=== PATIENT | male | born 1965 | race Caucasian/White ===

== ENCOUNTER 2018-07-22 14:40 | Outpatient (CLI) | payer OTHER ==
[2018-07-22] MEDS ORDERED: IOVERSOL 320 100 ML VIAL IVP ONE ×2 (14:57→16:29)
[2018-07-22 15:32] LABS: CREATININE 1.1 mg/dL (0.6-1.2)
--- NOTE | 2018-07-23 11:42 | CT Report ---
Reason: ASCENDING AORTAIC ANEURYSM Procedure Date: 07/22/2018 Accession Number: [id number] / [id number] Procedure: CT - Chest Angio (AORTA) CPT Code: FULL RESULT: EXAM: CT ANGIOGRAM CHEST EXAM DATE: 07/22/2018 03:40 PM. CLINICAL HISTORY: Thoracic aortic aneurysm without rupture. COMPARISONS: CHEST W/O 12/23/2013 2:57 PM. TECHNIQUE: Routine axial helical CT angiographic imaging was performed through the chest. IV Contrast: 80 mL Optiray 320. Reconstructions: Coronal, sagittal, and 3D MIP reconstructions of the aorta. In accordance with CT protocol optimization, one or more of the following dose reduction techniques were utilized for this exam: automated exposure control, adjustment of mA and/or KV based on patient size, or use of iterative reconstructive technique. FINDINGS: Vascular Structures: The thoracic aorta is upper limits normal in caliber with sinus of Valsalva measuring up to 4.2 cm and the ascending aorta measuring up to 3.9 cm. No acute aortic pathology or significant atherosclerotic disease is demonstrated. Variant bovine arch anatomy is seen. The aortic arch branch vessels appear relatively patent. Conventional coronary artery anatomy is seen with minor scattered calcified atherosclerotic disease seen primarily in the right coronary artery. Lungs/Pleura: There are several scattered pulmonary nodules distributed in a perilymphatic fashion similar to the prior study with appearance characteristic for sarcoidosis. There is some more confluent small consolidation and nodularity seen in the posterior right middle lobe. No dominant mass is seen. No effusion is demonstrated. Mediastinum: Heart size is normal with no pericardial effusion. Moderate diffuse partly calcified lymphadenopathy is again seen throughout the hilum and mediastinum similar to prior study with appearance characteristic for sarcoidosis. Abdominal Organs: Visualized upper abdominal organs are notable for cholecystectomy changes. Bones: Minor compression deformity at T9 is stable. No acute osseous abnormality is demonstrated. Other: None. IMPRESSION: 1. Minimal prominence of the aortic root and ascending thoracic aorta measuring up to 3.9 cm. No acute aortic pathology is demonstrated. 2. Stable calcified mediastinal adenopathy and a slightly increasing perilymphatic nodular changes in the lung characteristic for sarcoidosis. 3. Stable chronic minor T9 compression fracture. 4. Minor calcified coronary artery disease. RADIA
== END 2018-07-22 14:41 | disposition home or self-care (01) ==
LOC: DI 14:40
PROVIDERS: ATTEND Physician Assistant Medical
DX: I77.810 Thoracic aortic ectasia (principal); R59.0 Localized enlarged lymph nodes; I25.10 Atherosclerotic heart disease of native coronary artery without angina pectoris; M48.54XA Collapsed vertebra, not elsewhere classified, thoracic region, initial encounter for fracture
CPT/HCPCS: 36415; 71275; 82565; Q9967

== ENCOUNTER 2018-08-04 07:11 | Outpatient (CLI) | payer OTHER ==
--- NOTE | 2018-08-04 10:06 | Ultrasound Report ---
Reason: ELEVATED LFT'S,ALCOHOL ABUSE Procedure Date: 08/04/2018 Accession Number: [id number] / [id number] Procedure: US - Abdomen Limited CPT Code: FULL RESULT: EXAM: ABDOMEN ULTRASOUND LIMITED, RUQ EXAM DATE: 08/04/2018 08:20 AM. CLINICAL HISTORY: Elevated LFTS, alcohol abuse. COMPARISON: None. TECHNIQUE: Real-time scanning was performed with static images obtained. FINDINGS: Liver: Liver echotexture is heterogeneous with increased echogenicity in keeping with parenchymal disease such as steatosis. The right lobe of the liver measures at least 19.3 cm, subjectively mildly enlarged by ultrasound. Main portal vein flow: Hepatopetal. Gallbladder: Surgically absent. Biliary System: CBD measures 8 mm. No intrahepatic or extrahepatic ductal dilatation. Other: The visualized portions of the hepatic IVC demonstrate eccentric echogenic intravascular thrombus occupying less than 25% of the vessel lumen. IMPRESSION: Hepatic steatosis. 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 CRITICAL RESULT: The findings were discussed with Dr. Lalwer on 08/04/2018 at 8:30 AM. GIANFRANCO
== END 2018-08-04 07:12 | disposition home or self-care (01) ==
LOC: DI 07:11
PROVIDERS: ATTEND Physician Assistant Medical
DX: K76.0 Fatty (change of) liver, not elsewhere classified (principal); R79.89 Other specified abnormal findings of blood chemistry; F10.10 Alcohol abuse, uncomplicated
CPT/HCPCS: 76705

== ENCOUNTER 2018-08-21 11:33 | Outpatient (CLI) | payer OTHER ==
[2018-08-22 13:20] LABS: HEPATITIS B SURFACE ANTIGEN NON-REACTIVE (NON-REACTIVE)
[2018-08-22 13:22] LABS: HEPATITIS A IGM NON-REACTIVE (NON-REACTIVE); HEPATITIS B CORE ANTIBODY IGM NON-REACTIVE (NON-REACTIVE); HEPATITIS B SURFACE ANTIGEN NON-REACTIVE (NON-REACTIVE); HEPATITIS C ANTIBODY NON-REACTIVE (NON-REACTIVE)
[2018-08-23 14:57] LABS: ANA SCREEN NEGATIVE (NEGATIVE)
[2018-08-26 16:00] LABS: B2 GLYCOPROTEIN I IGA AB <9 SAU (< OR = 20); B2 GLYCOPROTEIN I IGG AB <9 SGU (< OR = 20); B2 GLYCOPROTEIN I IGM AB <9 SMU (< OR = 20); CARDIOLIPIN AB IGA <11 APL
== END 2018-08-21 11:34 | disposition home or self-care (01) ==
LOC: LAB 11:33
PROVIDERS: ATTEND Internal Medicine Gastroenterology
DX: R94.5 Abnormal results of liver function studies (principal)
CPT/HCPCS: 36415; 80074; 81599; 82728; 83516; 85300; 85303; 85306; 85613; 85730; 86038; 86146; 86147; 87340

== ENCOUNTER 2018-09-12 09:27 | Outpatient (CLI) | payer OTHER ==
[2018-09-12] MEDS ORDERED: IOVERSOL 320 100 ML VIAL IVP ONE ×2 (09:43→11:19)
[2018-09-12] MEDS ORDERED: IOVERSOL 320 50 ML VIAL ONE (09:43)
[2018-09-12 09:53] LABS: CREATININE 0.9 mg/dL (0.6-1.2)
[2018-09-12] MEDS ORDERED: IOVERSOL 320 50 ML VIAL PO ONE (11:19)
--- NOTE | 2018-09-15 06:46 | CT Report ---
Reason: HEPATIC VEIN THROMBOSIS Procedure Date: 09/12/2018 Accession Number: [id number] / [id number] Procedure: CT - Abdomen W/ CPT Code: FULL RESULT: EXAM: CT ABDOMEN EXAM DATE: 09/12/2018 10:58 AM. 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 COMPARISON: ABDOMEN LIMITED 08/04/2018 7:26 AM CHEST ANGIO (AORTA) 07/22/2018 3:40 PM. TECHNIQUE: Routine helical CT imaging was performed through the abdomen. IV contrast: opti 320 100ml Enteric contrast: Yes. Reconstruction: Coronal and sagittal. In accordance with CT protocol optimization, one or more of the following dose reduction techniques were utilized for this exam: automated exposure control, adjustment of mA and/or KV based on patient size, or use of iterative reconstructive technique. FINDINGS: Lung Bases: There are calcified mediastinal and hilar lymph nodes. There are small pulmonary nodules. Similar appearance compared to prior chest CT. Liver: Diffusely decreased attenuation of the liver consistent with steatosis. Gallbladder/Bile Ducts: Surgically absent gallbladder. No abnormal bile duct dilation. Spleen: Normal. Pancreas: Normal. Adrenal Glands: Normal. Kidneys: Normal. No masses or hydronephrosis. Peritoneal Cavity/Bowel: Normal. No free fluid, free air or adenopathy. No masses or acute inflammatory process. Vasculature: No aneurysms or other significant abnormality. Mild atherosclerotic calcification in the aorta and iliac arteries. Specifically, no intrahepatic IVC thrombosis is evident. Bones: No significant abnormality. Other: There are a few small retroperitoneal and periportal lymph nodes, nonspecific. IMPRESSION: 1. Intrahepatic IVC thrombosis is not evident on this exam. 2. No acute abnormality. 3. Hepatic steatosis. RADIA
== END 2018-09-12 09:28 | disposition home or self-care (01) ==
LOC: DI 09:27
PROVIDERS: ATTEND Internal Medicine Gastroenterology
DX: K76.0 Fatty (change of) liver, not elsewhere classified (principal); I82.0 Budd-Chiari syndrome
CPT/HCPCS: 36415; 74160; 82565; Q9967

== ENCOUNTER 2020-08-15 08:03 | Outpatient (CLI) | payer OTHER ==
[2020-08-15] MEDS ORDERED: IOVERSOL 320 100 ML VIAL IVP ONE ×2 (08:40→10:21)
--- NOTE | 2020-08-15 11:10 | CT Report ---
PROCEDURE: ANGIO ABDOMEN/PELVIS W INDICATIONS: ASCENDING AORTA DILITATION, PULMONARY SACOIDOSIS CONTRAST: IV CONTRAST: Optiray 320 ml: 100 PO CONTRAST: *NO PO CONTRAST TECHNIQUE: After the administration of intravenous contrast, 2 and 5 mm sections acquired from the diaphragm to the iliac crests. 3-dimensional maximum intensity projection (MIP) coronal and sagittal reformats, a nd/or 3-dimensional volume rendering reformatting was then performed. For radiation dose reduction, the following was used: automated exposure control, adjustment of mA and/or kV according to patient size. COMPARISON: CT abdomen with contrast dated 09/12/2018 FINDINGS: Image quality: Excellent. Extravascular tissues: Lung bases are clear. Bilateral hilar adenopathy and calcified hilar and infr ahilar and posterior mediastinal lymph nodes are consistent with the patient's known diagnosis of pul monary sarcoidosis. Heart size is normal. Liver and spleen are normal in size and enhancement. Gall bladder is surgically absent. Biliary system is non dilated. Pancreas enhances normally. No adrena l nodules. Kidneys are normal in size and enhancement, without hydronephrosis. Non-opacified bowel loops demonstrate normal wall thickness and caliber. No free fluid or air. Mild diverticulosis. No retroperitoneal or mesenteric adenopathy. No ventral hernias. Bilateral fat-containing inguinal her nias. No inguinal adenopathy. No suspicious bony abnormalities. No acute vertebral body compression fractures. Chronic mild to moderate T9 compression. Abdominal aorta: Normal caliber without aneurysm or significant plaque or stenosis. Mesenteric arteries: SMA, celiac, and JEANNINE are widely patent. Renal arteries: Widely patent bilateral single main renal arteries. IMPRESSION: 1. Unremarkable abdominal aorta. No aneurysm. 2. Known pulmonary sarcoidosis. Please refer to a separate report for chest CTA findings. 3. Bilateral fat-containing inguinal hernias. 4. Mild diverticulosis. 5. Remote cholecystectomy. Reviewed by: Jerald Farah MD on 08/15/2020 11:09 AM [facility] Approved by: Jerald Farah MD on 08/15/2020 11:09 AM PST Station ID: [id number]
--- NOTE | 2020-08-15 16:54 | CT Report ---
PROCEDURE: ANGIO CHEST W/WO INDICATIONS: ASCENDING AORTA DILITATION, PULMONARY SACOIDOSIS CONTRAST: IV CONTRAST: Optiray 320 ml: 100 PO CONTRAST: *NO PO CONTRAST TECHNIQUE: After the administration of intravenous contrast, 2 mm thick sections acquired from the pulmonary api harper to the posterior costophrenic angles. 3-dimensional maximum intensity projection (MIP) coronal a nd sagittal reformats were then acquired through the thorax. For radiation dose reduction, the follow ing was used: automated exposure control, adjustment of mA and/or kV according to patient size. COMPARISON: Prior 12/23/2013 and 07/22/[address] scanning reviewed. Also, 09/12/2018 CT of the abdo men that includes a portion of the lung bases is reviewed. FINDINGS: Image quality: Excellent. Pulmonary arteries: Pulmonary arteries are normal in size, and demonstrate no intraluminal filling d efects to suggest central pulmonary embolism. Lungs and pleura: Lungs are again seen to be abnormal, with a combination of areas of chronic appear ing alveolar consolidation in the perihilar regions, right greater than left, and also scattered with in the mid and lower lungs bilaterally. No areas of pulmonary fibrosis are found. The pattern has pro gressed from the earlier chest CT scanning from December 2013 when a lesser degree of these abnormalities was present. No pleural effusions or pneumothorax. Central and peripheral airways are patent. Mediastinum: Heart size is normal, without pericardial effusion. There is a pattern of mild to moder ate mediastinal and hilar adenopathy, comprised of both mildly enlarged lymph nodes, and an increased number of these lymph nodes, and also calcified smaller lymph nodes within the mediastinum and each hilum, bilaterally. Thoracic aorta is normal in caliber at 3.7-3.9 cm at the ascending aorta and enh ancement. Esophagus is normal in caliber, without hiatal hernia. Bones and chest wall: No suspicious bony lesions. Ribs and thoracic spine appear intact throughout. The thyroid is normal where well seen. No axillary or supraclavicular adenopathy. Abdomen: Visualized upper abdominal solid organs appear normal in the early arterial phase of enhanc ement. Apparent prior cholecystectomy. IMPRESSION: The air space disease pattern and mediastinal/hilar adenopathy has progressed slowly from the compari son examination in December 2013 to the current examination. As noted, there is a pattern of mediastinal a nd hilar adenopathy that includes both mildly enlarged nodes and scattered partially calcified nodes. The appearance could represent a manifestation of chronic active granulomatous disease but is also c onsistent with sarcoidosis. No pulmonary fibrosis is found. The ascending aorta is clinically reported to be dilated, but the current maximal dimension of the as cending aorta is within normal limits, measured at 3.7-3.9 cm in maximal diameter. Reviewed by: Kyle Villa MD on 08/15/2020 4:53 PM PST Approved by: Kyle Villa MD on 08/15/2020 4:53 PM PST Station ID: [id number]
== END 2020-08-15 08:04 | disposition home or self-care (01) ==
LOC: DI 08:03
PROVIDERS: ATTEND Nurse Practitioner
DX: K40.20 Bilateral inguinal hernia, without obstruction or gangrene, not specified as recurrent (principal); K57.90 Diverticulosis of intestine, part unspecified, without perforation or abscess without bleeding; D86.0 Sarcoidosis of lung; R59.0 Localized enlarged lymph nodes; I10 Essential (primary) hypertension; R73.9 Hyperglycemia, unspecified
CPT/HCPCS: 71275; 74174; Q9967

== ENCOUNTER 2020-08-15 08:17 | Outpatient (CLI) | payer OTHER ==
[2020-08-15 08:46] LABS: ALBUMIN 4.6 g/dL (3.2-5.5); ALBUMIN/GLOBULIN RATIO 1.5 (1.0-2.2); BILIRUBIN,TOTAL 1.2 mg/dL (0.2-1.0); CALCIUM 9.2 mg/dL (8.5-10.3); CREATININE 0.9 mg/dL (0.6-1.2); TOTAL PROTEIN 7.6 g/dL (6.7-8.2)
== END 2020-08-15 08:18 | disposition home or self-care (01) ==
LOC: LAB 08:17
PROVIDERS: ATTEND Nurse Practitioner
DX: I10 Essential (primary) hypertension (principal); R73.9 Hyperglycemia, unspecified
CPT/HCPCS: 36415; 80053

== ENCOUNTER 2021-02-23 14:36 | Outpatient (CLI) | payer OTHER ==
[2021-02-23 15:20] VITALS: BP 134/80
--- NOTE | 2021-02-23 15:20 | SLEEP CARE CONSULTATION ---
Information from patient questionnaire entered by Shirley Jaramillo. I have reviewed and concur with the information entered by Shirley Jaramillo. This document represents the service I personally performed and the decisions made by me, Joanie Quinteros ARNP. History of Present Illness Service Date and Time: 02/23/2021 1436 Reason for Visit: New patient, Previously diagnosed sleep apnea (very severe - AHI - 72.7), sleep apnea on CPAP therapy ([employer]), Re-establish care (last seen 2015) Chief Complaint: reports: Other (check up, using CPAP since about 2011) Date of Onset: mid 1999 Usual bedtime: 9 pm Time it takes to fall asleep: 30 minutes - use ambien Snores at night: Yes Observed to quit breathing while asleep: Yes Sleeps alone due to snoring: No Number of times waking at night: 0 Toss, Turn, or Twitch while sleeping: No Recalls having dreams: Yes (sometimes) Usually gets out of bed at: 6 am Feels refreshed in the morning: Yes Morning headache: No Sleepy or fatigued during the day: Yes Ever fallen asleep while driving: No Takes day naps: Yes Dreams during day naps: No Prior sleep studies: Yes Year and Where: [address] [facility] Sleep Type of Sleep Study: Polysomnography Additional HPI information: MALCOLM AGUERO was previously diagnosed to have very severe, AHI 72.7, obstructive sleep apnea-hypopnea syndrome and comes in today to re-establish care for CPAP therapy. - Parasomnia Symptoms Ever been unable to move upon waking from sleep: No Walks in sleep: No Talks in sleep: No Ever acted out dreams in sleep: No Ever felt weak in the knees when startled or emotional: No Bothered by creepy, crawly, restless sensations in legs: No Problems with memory or concentration: No CPAP Compliance Data - Data Reviewed with Patient Average duration of nightly device use: 9 hr 42 min Compliance rate %: 100 (180 days) Current pressure setting (cmH2O): 11 Humidity settin Heated hose settin Average residual AHI: 1.3 Average large leak: 12 min 53 sec Compliance data discussion: He has been buying his supplies online. He was using [employer] in town in the past. He is using a nasal cushion Dreamwear mask. He last changed the cushion last week. Subjective Patient concerns: denies: aerophagia, mask discomfort, air blowing in eyes, mask leak noise, condensation in mask/hose, nasal congestion, dry mouth, nose, throat, epistaxis, other Observed to snore while using device: No Current pressure setting perceived as: comfortable On therapy, patient: reports: sleeping better, awakening more refreshed, being more awake and alert during the day, more rested overall. 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 Patient is and lives in [place]. Have you smoked in the past 12 months: No Alcohol use: No Alcohol amount and frequency: no as of 06/2018 Caffeine use: Yes Caffeine amount and frequency: 3 cups a day in the morning Family History Family history of sleep disordered breathing: Yes Family Hx Sleep Apnea: Father: Snoring, Sleep apnea - Treated, Sibling: Snoring, Sleep apnea - Treated Allergies and Home Medications Drug allergies reviewed: Yes (NKDA) Home medication list reviewed: Yes Allergy and home medication list: Allopurinal Amlodipine Besylate Metformin Lansoprazole Metoprolol Er Succinate Escitalopram Atorvastatin Zolpidem, as needed Aspirin Multivitamin/Multimineral Fiber Well Gummies Glucosamine/Chondroitin Krill oil Aller-Sumi Colchicine, prn Ibuprofen Review of Systems Weight loss over past 5 years: 20 Cardiovascular: reports: high blood pressure Gastrointestinal: denies: heartburn Neurological: denies: headaches Psychiatric: denies: anxiety, depression Ear/Nose/Throat: reports: wisdom teeth removed. denies: tonsillectomy Immunologic: denies: allergies to food or environment Physical Exam Blood Pressure: 134/80 Cuff size: wrist Heart Rate: 65 O2 Saturation: 98 Height: 5 ft 10 in Weight: 224 lb Body Mass Index: 32.1 BMI Classification: Obese Impression and Plan 1. Obstructive Sleep Apnea-Hypopnea Syndrome, very severe, with excellent treatment compliance and good apnea control. On CPAP therapy, the patient has better sleep quality and is more rested overall. Patient is overall satisfied with his CPAP treatment and states he has difficulty sleeping without it. He found out that his DreamStation is on the Create recall and came in to see if he could replace his device. His device is due for an upgrade in May 2021. The patients CPAP is about 5 years old and of reasonable use and on the recall. Thus, we will try to update his machine. A DWO prescription will be made. Compliance guidelines for new device and follow up discussed. Patient states he has noticed any particulates in his device. I encouraged him to obtain an inline filter if he is going to continue to use this device. He voiced understanding. Patient's apnea severity and rationale for treatment to reduce apnea, improve sleep quality and reduce cardiovascular and cerebrovascular events was reviewed. I also reviewed the benefit of consistent device use of CPAP for hypertension, arrhythmia, diabetes, and gastric reflux. * Continue auto CPAP pressure at 11 cmH2O * Update Machine and supplies * Notify me if snoring with mask or feeling that the pressure is too much or too little * Attempt to lose weight * Call this office if any problems using CPAP * Return for follow up one month after obtaining new device, or sooner if con cerns arise Counseling Topics: Spare mask, Weight loss health impact Visit Type: In Office Time Spent with Patient (minutes): 30 Provider Statement: I spent 100% of the Face to Face Visit with the patient with greater than 50% spent counseling the patient and coordination of care.
== END 2021-02-23 14:37 | disposition home or self-care (01) ==
LOC: SC 14:36
PROVIDERS: ATTEND Nurse Practitioner Family
DX: G47.33 Obstructive sleep apnea (adult) (pediatric) (principal); E66.9 Obesity, unspecified; Z68.32 Body mass index [BMI] 32.0-32.9, adult
CPT/HCPCS: 99203; 99212

== ENCOUNTER 2022-07-11 08:52 | Outpatient (CLI) | payer OTHER ==
--- NOTE | 2022-07-11 09:31 | SLEEP CARE CONSULTATION ---
Information from patient questionnaire entered by Halie Rashid. I have reviewed and concur with the information entered by Halie Rashid. This document represents the service I personally performed and the decisions made by , Joanie Quinteros ARNP. History of Present Illness Service Date and Time: 07/11/2022 0852 Previous diagnosis: Very Severe, Obstructive Sleep Apnea-Hypopnea Syndrome AHI: 72.7 (in 2010) Reason for follow up: annual (LAST SEEN 02/2021) Equipment type: CPAP Equipment obtained from: Other (getting from [facility]) Mask style: Nasal Mask brand: Respironics (Dreamwear) Backup mask available: No (will keep old mask when replaced) Last cushion change: 2 weeks [facility] Type of Sleep Study: Polysomnography HPI additional information: MALCOLM AGUERO was diagnosed to have very severe, AHI 72.7, obstructive sleep apnea-hypopnea syndrome and returned today for CPAP therapy annual follow-up. Sleep Study - Results Type of Sleep Study: Polysomnography [facility]: Yes [facility] Compliance Data - Data Reviewed with Patient Average duration of nightly device use: 9 HRS 28 MIN 48SEC Compliance rate %: 98.9 (12/28/21-06/25/22; 180/180 days used) Current pressure setting (cmH2O): 11 Average residual AHI: 1.3 Central apnea: 0.1 Obstructive apnea: 0.8 Subjective Missed days of use due to: reports: other (power outage) Patient concerns: reports: nasal congestion (due to allergies). denies: aerophagia, mask discomfort, air blowing in eyes, mask leak noise, condensation in mask/hose, dry mouth, nose, throat, epistaxis Observed to snore while using device: No Current pressure setting perceived as: comfortable On therapy, patient: reports: sleeping better, awakening more refreshed, being more awake and alert during the day, more rested overall. denies: drowsiness while driving Initial [place] Sleepiness Scale score: 6 (07/11/22) Current [place] Sleepiness Scale score: 6 Allergies and Home Medications Drug allergies reviewed: Yes (NKDA) Home medication list reviewed: Yes (Metoprolol reduced to 25 mg) Review of Systems Review of systems same as previous: No (Cardiac Sarcoidosis) Physical Exam Vital signs obtained and entered by: HALIE Rice MA Blood Pressure: 126/78 (LEFT ARM) Cuff size: regular Heart Rate: 66 O2 Saturation: 96 Height: 5 ft 10 in Weight: 231 lb Body Mass Index: 33.1 BMI Classification: Obese Impression and Plan 1. Obstructive Sleep Apnea-Hypopnea Syndrome, very severe, with good treatment compliance and good apnea control. On CPAP therapy, the patient has better sleep quality and is more rested overall. Patient has been buying his supplies online and he needs a DME supplier. I will have my hris coordinator inform of DME options. A DWO prescription will then be made. Patient advised to contact this office if further supply problems. Patient has significant improvement of their sleep apnea and are satisfied with current CPAP therapy. Patient denies problems with oral dryness, nasal congestion, epistaxis, skin irritation or aerophagia. Patient's apnea severity and rationale for treatment to reduce apnea, improve sleep quality and reduce cardiovascular and cerebrovascular events was reviewed. I also reviewed the benefit of consistent device use of CPAP for hypertension, arrhythmia, diabetes and gastric reflux. 2. Obesity, unspecified. Currently patients BMI is 33.1. Obesity increases the risk of apnea, CPAP pressure requirements and overall health risks especially cardiovascular and diabetes. Thus patient is advised to lose weight. * Continue CPAP pressure at 11 cmH2O * Transfer DME * Update supplies * Notify me if snoring with mask or feeling that the pressure is too much or too little * Attempt to lose weight * Call this office if any problems using CPAP * Return for follow up in 1 year, or sooner if concerns arise Counseling Topics: Spare mask, Weight loss health impact Visit Type: In Office Time Spent with Patient (minutes): 21 Provider Statement: I spent 100% of the Face to Face Visit with the patient with greater than 50% spent counseling the patient and coordination of care.
[2022-07-11 09:32] VITALS: BP 126/78
== END 2022-07-11 08:53 | disposition home or self-care (01) ==
LOC: SC 08:52
PROVIDERS: ATTEND Nurse Practitioner Family
DX: G47.33 Obstructive sleep apnea (adult) (pediatric) (principal); E66.9 Obesity, unspecified; Z68.33 Body mass index [BMI] 33.0-33.9, adult
CPT/HCPCS: 99212; 99213

== ENCOUNTER 2023-07-12 09:25 | Outpatient (CLI) | payer OTHER ==
--- NOTE | 2023-07-12 09:47 | Sleep Patient Instructions ---
Sleep Center Visit Summary - Patient Visit Information Reason for Visit: Annual Visit for PAP therapy - Patient Instructions Additional Instructions: You will continue with CPAP therapy with pressure set at 11 cmH2O. A supply prescription will be updated with your DME. We encourage you to continue to try to lose weight. Please follow up with the sleep care office in 1 year. - Clinic Information Contact: [facility] [address] [place] [address] [email or web address] T: [phone]
--- NOTE | 2023-07-12 09:49 | SLEEP CARE CONSULTATION ---
Information from patient questionnaire entered by Halie Rashid. I have reviewed and concur with the information entered by Halie Rashid. This document represents the service I personally performed and the decisions made by me, Joanie Quinteros ARNP. History of Present Illness Service Date and Time: 07/12/2023 09 Previous diagnosis: Very Severe, Obstructive Sleep Apnea-Hypopnea Syndrome AHI: 72.7 (in 2010) Reason for follow up: annual (LAST SEEN 06/2022) Equipment type: CPAP (V[employer] Dreamstation 2) Equipment obtained from: Other ([facility]; getting supplies) Mask style: Nasal Mask brand: Respironics (Dreamwear) Backup mask available: Yes (other mask) Last cushion change: 2 weeks Prior sleep studies: Yes Year and Where: 2010 - [facility] Type of Sleep Study: Polysomnography HPI additional information: MALCOLM AGUERO was diagnosed to have very severe, AHI 72.7, obstructive sleep apnea-hypopnea syndrome and returned today for CPAP therapy annual follow-up. Sleep Study - Results Type of Sleep Study: Polysomnography Prior sleep studies: Yes Year and Where: 2010 [facility] CPAP Compliance Data - Data Reviewed with Patient Average duration of nightly device use: 9 HRS 41 MINS Compliance rate %: 99.7 (07/10/2022-07/09/23; 365/365 days used) Current pressure setting (cmH2O): 11 Average residual AHI: 1.2 Central apnea: 0.1 Obstructive apnea: 0.7 Hypopnea: 0.4 Average large leak: 7 secs Subjective Patient concerns: denies: aerophagia, mask discomfort, air blowing in eyes, mask leak noise, condensation in mask/hose, nasal congestion, dry mouth, nose, throat, epistaxis Observed to snore while using device: No Current pressure setting perceived as: comfortable On therapy, patient: reports: sleeping better, awakening more refreshed, being more awake and alert during the day, more rested overall. denies: drowsiness while driving Initial [place] Sleepiness Scale score: 6 (07/11/22) Current [place] Sleepiness Scale score: 7 (07/12/23) Allergies and Home Medications Known drug allergies: No Drug allergies reviewed: Yes Home medication list reviewed: Yes (Spirolactone 12.5 mg; Losartain 12.5 mg) Allergy and home medication list: Allergies No Known Drug Allergies Allergy (Verified 07/11/23 12:54) Review of Systems Review of systems same as previous: No (CARIDIAC PET/CET SPINAL STEROID INECTION) Physical Exam Vital signs obtained and entered by: HALIE Rice MA Blood Pressure: 100/62 (LEFT ARM) Cuff size: regular Heart Rate: 62 O2 Saturation: 96 Height: 5 ft 10 in Weight: 236 lb 6.4 oz Body Mass Index: 33.9 BMI Classification: Obese Impression and Plan 1. Obstructive Sleep Apnea-Hypopnea Syndrome, very severe, with good treatment compliance and good apnea control. On CPAP therapy, the patient has better sleep quality and is more rested overall. Patient has significant improvement of their sleep apnea and is satisfied with current CPAP therapy. Patient denies problems with oral dryness, nasal congestion, epistaxis, skin irritation or aerophagia. Patient's apnea severity and rationale for treatment to reduce apnea, improve sleep quality and reduce cardiovascular and cerebrovascular events was reviewed. I also reviewed the benefit of consistent device use of CPAP for hypertension, arrhythmia, diabetes and gastric reflux. 2. Obesity, unspecified. Currently patients BMI is 33.9. Obesity increases the risk of apnea, CPAP pressure requirements and overall health risks especially cardiovascular and diabetes. Thus patient is advised to lose weight. * Continue auto CPAP pressure at 11 cmH2O * Update supply prescription * Notify me if snoring with mask or feeling that the pressure is too much or too little * Attempt to lose weight * Call this office if any problems using CPAP * Return for follow up in 12 months, or sooner if concerns arise Counseling Topics: Spare mask, Weight loss health impact Prescriptions: Device supplies Follow up with Sleep Care in: 1 year Visit Type: In Office Time Spent with Patient (minutes): 15 Provider Statement: I spent 100% of the Face to Face Visit with the patient with greater than 50% spent counseling the patient and coordination of care.
[2023-07-12 09:52] VITALS: BP 100/62; O2SAT 96
== END 2023-07-12 09:26 | disposition home or self-care (01) ==
LOC: SC 09:25
PROVIDERS: ATTEND Nurse Practitioner Family
DX: G47.33 Obstructive sleep apnea (adult) (pediatric) (principal); E66.9 Obesity, unspecified; Z68.33 Body mass index [BMI] 33.0-33.9, adult
CPT/HCPCS: 99212

== ENCOUNTER 2023-08-07 14:54 | Outpatient (CLI) | payer OTHER | END 2023-08-07 14:55 | disposition home or self-care (01) | LOC: DI 14:54 | PROVIDERS: ATTEND Internal Medicine Cardiovascular Disease | DX: I47.29 Other ventricular tachycardia (principal) | CPT/HCPCS: 93306 ==